=== PATIENT | female | born 1970 | race Caucasian/White ===

== ENCOUNTER 2018-02-28 15:50 | Emergency (ER) | payer SELFPAY ==
[~2018-02-28] VITALS: Ht 162.6 cm; Wt 70.3 kg
[2018-02-28 16:30] VITALS: BP 125/71
--- NOTE | 2018-02-28 17:26 | NUR ---
PT AMBULATES TO BED 4
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
--- NOTE | 2018-02-28 19:09 | NUR ---
RECIEVED REPORT FROM RAFY PINA.
[2018-02-28] MEDS ORDERED: IBUPROFEN 600 MG TAB PO ONE (19:55)
[2018-02-28 20:45] VITALS: BP 125/71
== END 2018-02-28 20:45 | disposition home or self-care (01) ==
LOC: MED 15:50
DX: S16.1XXA Strain of muscle, fascia and tendon at neck level, initial encounter (principal); S39.012A Strain of muscle, fascia and tendon of lower back, initial encounter; V43.62XA Car passenger injured in collision with other type car in traffic accident, initial encounter; Y93.89 Activity, other specified; Y92.89 Other specified places as the place of occurrence of the external cause; Y99.8 Other external cause status
CPT/HCPCS: 71045; 72050; 81025; 99283